=== PATIENT | female | born 1980 | race Two or more races ===

== ENCOUNTER 2017-10-07 16:34 | Emergency (ER) | payer OTHER ==
[~2017-10-07] VITALS: Ht 144.8 cm; Wt 68.0 kg
[2017-10-07] MEDS ORDERED: ipratropium/albuterol 3ml nebule NEB ONE (16:55)
[2017-10-07] MEDS ORDERED: AMOX-419 PO (16:56)
[2017-10-07] MEDS ORDERED: PRED20TA PO (16:56)
[2017-10-07] MEDS ORDERED: GUAI120015 PO (16:56)
== END 2017-10-07 17:42 | disposition home or self-care (01) ==
LOC: ER 16:36 → MERGE 16:36 → ER 17:42
DX: J06.9 Acute upper respiratory infection, unspecified (principal); J32.9 Chronic sinusitis, unspecified; J45.901 Unspecified asthma with (acute) exacerbation; F17.200 Nicotine dependence, unspecified, uncomplicated; Z79.899 Other long term (current) drug therapy; Z71.6 Tobacco abuse counseling
CPT/HCPCS: 94640; 94760; 99283

== ENCOUNTER 2023-07-18 18:50 | Emergency (ER) | payer SELFPAY ==
[~2023-07-18] VITALS: Ht 147.3 cm; Wt 69.9 kg
[~2023-07-18 18:50] MED LIST: GUAI120015 PO
[2023-07-18 19:11] VITALS: BP 149/98; PULSE 104; RESP 18; TEMP 98; O2SAT 93
[2023-07-18 19:28] LABS: BASOPHILS # (AUTO) 0.1 X10'3 (0-0.2); BASOPHILS % (AUTO) 0.8 % (0-1); EOSINOPHILS # (AUTO) 1.8 X10'3 (0-0.9); HEMATOCRIT 43.3 % (35.0-45.0); HEMOGLOBIN 14.5 g/dl (12.0-16.0); LYMPHOCYTES # (AUTO) 2.8 X10'3 (1.1-4.8); LYMPHOCYTES % (AUTO) 22.6 % (21-51); MEAN CORPUSCULAR HEMOGLOBIN 30.3 PG (27.0-31.0); MEAN CORPUSCULAR HGB CONC 33.6 g/dL (33.0-36.5); MEAN CORPUSCULAR VOLUME 90.2 FL (78-98); MEAN PLATELET VOLUME 7.5 FL (7.4-10.4); MONOCYTES % (AUTO) 7.6 % (2-12); NEUTROPHILS # (AUTO) 6.9 X10'3 (1.8-7.7); PLATELET COUNT 326 X10'3 (140-440); RED CELL DISTRIBUTION WIDTH 14.3 % (11.5-14.5); WHITE BLOOD COUNT 12.6 X10'3 (4.5-11.0)
[2023-07-18 19:47] LABS: ALANINE AMINOTRANSFERASE 42 U/L (12-78); ALBUMIN 3.5 G/DL (3.4-5.0); ALBUMIN/GLOBULIN RATIO 0.7 (1.1-1.5); ALKALINE PHOSPHATASE 75 IU/L (46-116); ANION GAP 4 (8-16); ASPARTATE AMINO TRANSFERASE 36 U/L (10-37); BILIRUBIN,TOTAL 0.3 MG/DL (0.1-1.0); BLOOD UREA NITROGEN 7 MG/DL (7-18); CALCIUM 8.9 MG/DL (8.5-10.1); CHLORIDE 99 MMOL/L (99-107); CREATININE 0.54 MG/DL (0.40-0.90); GLUCOSE 94 MG/DL (70-104); POTASSIUM 4.2 MMOL/L (3.5-5.1); SODIUM 133 MMOL/L (135-145); TOTAL CARBON DIOXIDE 30.4 MMOL/L (24-32); TOTAL PROTEIN 8.3 G/DL (6.4-8.2); eCRCL 89 ML/MIN; eGFR > 90 ML/MIN
[2023-07-18 19:53] LABS: PRO BRAIN NATRIURETIC PEPTIDE 219 PG/ML (0-125)
[2023-07-18 20:18] LABS: PLATELET ESTIMATE NORMAL; TOTAL CELLS COUNTED 100
[2023-07-18] MEDS ORDERED: albuterol 2.5 MG/3 ML nebule NEB ONE (22:35)
[2023-07-18] MEDS ORDERED: ipratropium 0.5 MG/2.5ML nebule IH ONE (22:35)
[2023-07-19] MEDS ORDERED: ALB0.5UD NEB ×2 (19:50→19:52)
[2023-07-19] MEDS ORDERED: AMOX-580 PO (19:52)
[2023-07-19] MEDS ORDERED: PRED20TA PO (19:52)
== END 2023-07-19 00:55 | disposition left against medical advice (07) ==
LOC: ER 18:51
DX: R06.02 Shortness of breath (principal); Z53.21 Procedure and treatment not carried out due to patient leaving prior to being seen by health care provider
CPT/HCPCS: 36415; 71045; 80053; 83880; 84484; 85007; 85025; 93005; 99281

== ENCOUNTER 2023-07-19 11:35 | Emergency (ER) | payer OTHER ==
[~2023-07-19] VITALS: Ht 147.3 cm; Wt 68.2 kg
[2023-07-19] MEDS ORDERED: ipratropium/albuterol 3ml nebule NEB STA (11:45)
[2023-07-19] MEDS ORDERED: ipratropium/albuterol 3ml nebule NEB PRN (11:45)
[2023-07-19] MEDS ORDERED: ipratropium 0.5 MG/2.5ML nebule IH ONE (11:50)
[2023-07-19] MEDS ORDERED: albuterol 2.5 MG/3 ML nebule NEB ONE (11:50)
[2023-07-19] MEDS ORDERED: dexamethasone sod phosphate 10mg/ml inj IV STA (12:27)
[2023-07-19] MEDS ORDERED: magnesium 2GM in 50ml NS 50 ML IV ONE (12:30)
[2023-07-19 12:33] VITALS: PULSE 70; RESP 20; O2SAT 97
[2023-07-19 12:36] LABS: BASOPHILS # (AUTO) 0.1 X10'3 (0-0.2); BASOPHILS % (AUTO) 0.6 % (0-1); EOSINOPHILS % (AUTO) 7.5 % (0-6); HEMATOCRIT 42.8 % (35.0-45.0); HEMOGLOBIN 14.2 g/dl (12.0-16.0); LYMPHOCYTES # (AUTO) 2.9 X10'3 (1.1-4.8); MEAN CORPUSCULAR HEMOGLOBIN 29.8 PG (27.0-31.0); MEAN CORPUSCULAR HGB CONC 33.1 g/dL (33.0-36.5); MEAN PLATELET VOLUME 8.2 FL (7.4-10.4); MONOCYTES # (AUTO) 1.1 X10'3 (0-0.9); NEUTROPHILS # (AUTO) 8.7 X10'3 (1.8-7.7); NEUTROPHILS % (AUTO) 62.9 % (42-75); PLATELET COUNT 314 X10'3 (140-440); RED BLOOD COUNT 4.76 X10'6 (4.20-5.60); WHITE BLOOD COUNT 13.8 X10'3 (4.5-11.0)
[2023-07-19 12:45] LABS: ALANINE AMINOTRANSFERASE 46 U/L (12-78); ALBUMIN 3.4 G/DL (3.4-5.0); ALBUMIN/GLOBULIN RATIO 0.8 (1.1-1.5); ALKALINE PHOSPHATASE 75 IU/L (46-116); ANION GAP 7 (8-16); ASPARTATE AMINO TRANSFERASE 43 U/L (10-37); BILIRUBIN,TOTAL 0.4 MG/DL (0.1-1.0); BLOOD UREA NITROGEN 7 MG/DL (7-18); BUN/CREATININE RATIO 11.9 (10.0-20.0); CALCIUM 9.1 MG/DL (8.5-10.1); CHLORIDE 99 MMOL/L (99-107); CREATININE 0.59 MG/DL (0.40-0.90); GLUCOSE 93 MG/DL (70-104); POTASSIUM 4.1 MMOL/L (3.5-5.1); SODIUM 135 MMOL/L (135-145); TOTAL CARBON DIOXIDE 29.3 MMOL/L (24-32); TOTAL PROTEIN 7.8 G/DL (6.4-8.2); eCRCL 81 ML/MIN; eGFR > 90 ML/MIN
[2023-07-19 12:55] VITALS: PULSE 96; RESP 18; O2SAT 99
[2023-07-19 12:56] LABS: PRO BRAIN NATRIURETIC PEPTIDE 266 PG/ML (0-125)
[2023-07-19 13:55] LABS: HCG SERUM QL NEGATIVE
[2023-07-19 15:15] VITALS: PULSE 105; RESP 22; O2SAT 96
[2023-07-19 15:23] VITALS: PULSE 96; RESP 24; O2SAT 100
[2023-07-19] MEDS ORDERED: ALB0.5UD NEB ×2 (19:50→19:52)
[2023-07-19] MEDS ORDERED: PRED20TA PO (19:52)
[2023-07-19] MEDS ORDERED: AMOX-580 PO (19:52)
[2023-07-19 20:01] VITALS: BP 140/80; PULSE 100; RESP 16; TEMP 98.1; O2SAT 95
== END 2023-07-19 20:05 | disposition home or self-care (01) ==
LOC: ER 11:36
DX: J45.901 Unspecified asthma with (acute) exacerbation (principal); R09.02 Hypoxemia
CPT/HCPCS: 36415; 71045; 80053; 83880; 84484; 84703; 85025; 93005; 94640; 96365; 96366; 99285; J1100; J3475; 94760; A4615